=== PATIENT | male | born 1955 | race American Indian/Alaskan Native ===

== ENCOUNTER 2021-01-08 09:19 | Emergency (ER) | payer MEDICARE ==
[2021-01-08] MEDS ORDERED: HYDROcodone/ACETAMINOPHEN 5-325 MG TAB PO ONE (10:29)
[2021-01-08] MEDS ORDERED: IBUPROFEN 800 MG TAB PO ONE (10:29)
[2021-01-08] MEDS ORDERED: SULFAMETHOXAZOLE/TRIMETHOPRIM 800/160MG DS TAB PO ONE (10:29)
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
--- NOTE | 2021-01-08 11:25 | XRay Report ---
RIGHT SHOULDER 3 VIEWS INDICATION: right shoulder pain injury while crawling. COMPARISON: None. IMPRESSION: No acute osseous or soft tissue abnormality. Moderate osteoarthritic changes are iden tified at the AC joint and to a lesser extent the glenohumeral joint. Signer Name: uSrjit Saini Jr, MD Signed: 01/08/2021 11:21 AM Workstation Name: [id number]
[2021-01-08 15:30] VITALS: BP 105/62
== END 2021-01-08 15:36 | disposition home or self-care (01) ==
LOC: ED 09:19
DX: S46.911A Strain of unspecified muscle, fascia and tendon at shoulder and upper arm level, right arm, initial encounter (principal); N39.0 Urinary tract infection, site not specified; M19.011 Primary osteoarthritis, right shoulder; X58.XXXA Exposure to other specified factors, initial encounter; F10.20 Alcohol dependence, uncomplicated; Y93.89 Activity, other specified; Y92.89 Other specified places as the place of occurrence of the external cause; Y99.8 Other external cause status
CPT/HCPCS: 99283

== ENCOUNTER 2021-09-08 13:04 | Emergency (ER) | payer MEDICARE ==
--- NOTE | 2021-09-08 19:05 | Emergency Department Report ---
- General Chief complaint: Skin/Abscess/Foreign Body Stated complaint: CYST ON SCALP Source: patient, EMS Mode of arrival: Stretcher Limitations: Physical Limitation - History of Present Illness Initial comments: 66-year-old male presents to the ED with rash noted to the occipital of the head. Patient states that he using a razor he had a small pimple that continue to grow x2 weeks. Patient states that he has been using [id number] medication without any relief. Patient denies any fever, chills, nausea or vomiting. Patient alert and oriented x3. No acute distress noted. No ill appearance noted. MD complaint: rash Onset/Timin -: week(s) Location: head Severity: mild Quality: aching Consistency: intermittent Improves with: none Worsens with: none - Related Data Home Medications Medication Instructions Recorded Confirmed Last Taken Amitriptyline [Elavil] 100 mg PO DAILY 05/10/20 05/10/20 05/09/20 22:00 100 Previous Rx's Medication Instructions Recorded Last Taken Type Acetaminophen [Acetaminophen TAB] 650 mg PO Q6H PRN tablet 05/13/20 Unknown Rx Amiodarone [Cordarone 200 MG TAB] 200 mg PO BID #60 tablet 05/13/20 Unknown Rx Aspirin [Aspirin BABY CHEW TAB] 81 mg PO QDAY #30 tab.chew 05/13/20 Unknown Rx Docusate Sodium [Colace CAP] 100 mg PO BID capsule 05/13/20 Unknown Rx Furosemide [Lasix TAB] 40 mg PO DAILY #30 tablet 05/13/20 Unknown Rx Metoprolol [Lopressor TAB] 25 mg PO Q6HR #120 tablet 05/13/20 Unknown Rx Pantoprazole [Protonix TAB] 40 mg PO QDAC #30 tablet 05/13/20 Unknown Rx Sennosides Tab [Senokot] 8.6 mg PO BID tablet 05/13/20 Unknown Rx Spironolactone [Aldactone] 25 mg PO QDAY #30 tablet 05/13/20 Unknown Rx bisacodyL [Dulcolax suppos] 10 mg MT QDAY PRN supp.rect 05/13/20 Unknown Rx lisinopriL [Zestril TAB] 2.5 mg PO QDAY #30 tablet 05/13/20 Unknown Rx oxyCODONE /ACETAMINOPHEN [Percocet 1 tab PO Q6H PRN tablet 05/13/20 Unknown Rx 5/325 mg] polyethylene glycoL 3350 [Miralax 17 gm PO QDAY powd.pack 05/13/20 Unknown Rx 3350] Ibuprofen [Motrin 400 MG tab] 400 mg PO Q8H PRN #15 tablet 01/08/21 Unknown Rx Sulfamethoxazole/Trimethoprim 1 each PO BID 10 Days #20 tablet 01/08/21 Unknown Rx [Bactrim DS TAB] Sulfamethoxazole/Trimethoprim 1 each PO BID 10 Days #20 tab 09/08/21 Unknown Rx [Bactrim DS TAB] Allergies Allergy/AdvReac Type Severity Reaction Status Date / Time No Known Allergies Allergy Verified 09/08/21 13:15 Abscess Boil HPI - HPI Chief Complaint: Skin/Abscess/Foreign Body Stated Complaint: CYST ON SCALP Home Medications: Home Medications Medication Instructions Recorded Confirmed Last Taken Amitriptyline [Elavil] 100 mg PO DAILY 05/10/20 05/10/20 05/09/20 22:00 100 Previous Rx's Medication Instructions Recorded Last Taken Type Acetaminophen [Acetaminophen TAB] 650 mg PO Q6H PRN tablet 05/13/20 Unknown Rx Amiodarone [Cordarone 200 MG TAB] 200 mg PO BID #60 tablet 05/13/20 Unknown Rx Aspirin [Aspirin BABY CHEW TAB] 81 mg PO QDAY #30 tab.chew 05/13/20 Unknown Rx Docusate Sodium [Colace CAP] 100 mg PO BID capsule 05/13/20 Unknown Rx Furosemide [Lasix TAB] 40 mg PO DAILY #30 tablet 05/13/20 Unknown Rx Metoprolol [Lopressor TAB] 25 mg PO Q6HR #120 tablet 05/13/20 Unknown Rx Pantoprazole [Protonix TAB] 40 mg PO QDAC #30 tablet 05/13/20 Unknown Rx Sennosides Tab [Senokot] 8.6 mg PO BID tablet 05/13/20 Unknown Rx Spironolactone [Aldactone] 25 mg PO QDAY #30 tablet 05/13/20 Unknown Rx bisacodyL [Dulcolax suppos] 10 mg MT QDAY PRN supp.rect 05/13/20 Unknown Rx lisinopriL [Zestril TAB] 2.5 mg PO QDAY #30 tablet 05/13/20 Unknown Rx oxyCODONE /ACETAMINOPHEN [Percocet 1 tab PO Q6H PRN tablet 05/13/20 Unknown Rx 5/325 mg] polyethylene glycoL 3350 [Miralax 17 gm PO QDAY powd.pack 05/13/20 Unknown Rx 3350] Ibuprofen [Motrin 400 MG tab] 400 mg PO Q8H PRN #15 tablet 01/08/21 Unknown Rx Sulfamethoxazole/Trimethoprim 1 each PO BID 10 Days #20 tablet 01/08/21 Unknown Rx [Bactrim DS TAB] Sulfamethoxazole/Trimethoprim 1 each PO BID 10 Days #20 tab 09/08/21 Unknown Rx [Bactrim DS TAB] Allergies/Adverse Reactions: Allergies Allergy/AdvReac Type Severity Reaction Status Date / Time No Known Allergies Allergy Verified 09/08/21 13:15 ED Review of Systems ROS: Stated complaint: CYST ON SCALP Other details as noted in HPI Constitutional: denies: chills, fever Eyes: denies: eye pain, eye discharge, vision change ENT: denies: ear pain, throat pain Respiratory: denies: cough, shortness of breath, wheezing Cardiovascular: denies: chest pain, palpitations Endocrine: no symptoms reported Gastrointestinal: denies: abdominal pain, nausea, diarrhea Genitourinary: denies: urgency, dysuria Musculoskeletal: denies: back pain, joint swelling, arthralgia Skin: lesions Neurological: denies: headache, weakness, paresthesias Psychiatric: denies: anxiety, depression Hematological/Lymphatic: denies: easy bleeding, easy bruising ED Past Medical Hx - Past Medical History Hx Hypertension: No Hx Congestive Heart Failure: No Hx Diabetes: No Hx Deep Vein Thrombosis: (Unknown) Hx Arthritis: Yes Hx Asthma: No Hx COPD: No Additional medical history: parapalegic from [facility] - Surgical History Hx Pacemaker: No Hx Internal Defibrillator: No Hx Cholecystectomy: Yes Additional Surgical History: muscle flap x3. bilateral hip surgery - Social History Smoking Status: Former Smoker Substance Use Type: Alcohol - Medications Home Medications: Home Medications Medication Instructions Recorded Confirmed Last Taken Type Amitriptyline [Elavil] 100 mg PO DAILY 05/10/20 05/10/20 05/09/20 22:00 History 100 Acetaminophen [Acetaminophen TAB] 650 mg PO Q6H PRN tablet 05/13/20 Unknown Rx Amiodarone [Cordarone 200 MG TAB] 200 mg PO BID #60 tablet 05/13/20 Unknown Rx Aspirin [Aspirin BABY CHEW TAB] 81 mg PO QDAY #30 tab.chew 05/13/20 Unknown Rx Docusate Sodium [Colace CAP] 100 mg PO BID capsule 05/13/20 Unknown Rx Furosemide [Lasix TAB] 40 mg PO DAILY #30 tablet 05/13/20 Unknown Rx Metoprolol [Lopressor TAB] 25 mg PO Q6HR #120 tablet 05/13/20 Unknown Rx Pantoprazole [Protonix TAB] 40 mg PO QDAC #30 tablet 05/13/20 Unknown Rx Sennosides Tab [Senokot] 8.6 mg PO BID tablet 05/13/20 Unknown Rx Spironolactone [Aldactone] 25 mg PO QDAY #30 tablet 05/13/20 Unknown Rx bisacodyL [Dulcolax suppos] 10 mg MT QDAY PRN supp.rect 05/13/20 Unknown Rx lisinopriL [Zestril TAB] 2.5 mg PO QDAY #30 tablet 05/13/20 Unknown Rx oxyCODONE /ACETAMINOPHEN [Percocet 1 tab PO Q6H PRN tablet 05/13/20 Unknown Rx 5/325 mg] polyethylene glycoL 3350 [Miralax 17 gm PO QDAY powd.pack 05/13/20 Unknown Rx 3350] Ibuprofen [Motrin 400 MG tab] 400 mg PO Q8H PRN #15 tablet 01/08/21 Unknown Rx Sulfamethoxazole/Trimethoprim 1 each PO BID 10 Days #20 tablet 01/08/21 Unknown Rx [Bactrim DS TAB] Sulfamethoxazole/Trimethoprim 1 each PO BID 10 Days #20 tab 09/08/21 Unknown Rx [Bactrim DS TAB] ED Physical Exam - General Limitations: Physical Limitation General appearance: alert, in no apparent distress - Head Head exam: Present: atraumatic, normocephalic - Eye Eye exam: Present: normal appearance - ENT ENT exam: Present: mucous membranes moist - Neck Neck exam: Present: normal inspection - Respiratory Respiratory exam: Present: normal lung sounds bilaterally. Absent: respiratory distress - Cardiovascular Cardiovascular Exam: Present: regular rate, normal rhythm. Absent: systolic murmur, diastolic murmur, rubs, gallop - GI/Abdominal GI/Abdominal exam: Present: soft, normal bowel sounds - Rectal Rectal exam: Present: deferred - Extremities Exam Extremities exam: Present: normal inspection - Back Exam Back exam: Present: normal inspection - Neurological Exam Neurological exam: Present: alert, oriented X3 - Psychiatric Psychiatric exam: Present: normal affect, normal mood - Skin Skin exam: Present: warm, dry, intact, normal color, rash ED Course Vital Signs 09/08/21 09/08/21 13:10 19:25 Temperature 98.7 F Pulse Rate 94 H 92 H Respiratory 16 12 Rate Blood Pressure 120/80 126/83 [Left] O2 Sat by Pulse 99 100 Oximetry ED Medical Decision Making - Medical Decision Making 66-year-old male presents to the ED with rash noted to the occipital of the head. Patient states that he using a razor he had a small pimple that continue to grow x2 weeks. Patient states that he has been using [id number] medication without any relief. Patient denies any fever, chills, nausea or vomiting. Patient alert and oriented x3. No acute distress noted. No ill appearance noted. Physical examination patient has hard tender nodule noted to the top of the head no fluctuance noted. Rechecked the patient is resting quietly quietly and comfortable and feeling better. I discussed the results of diagnostic study, my clinical impression and the plan for further treatment with the patient. Patient agrees with plan and discharge at this present time. All question addressed. I have given the patient instruction regarding a diagnosis ,expectation ,follow- up and return precaution. I explained to the patient that emergent condition may arise and to return to the ED for new worsen and any new persisting condition. I have explained the importance of following up with the primary care physician or referral physician listed below has instructed. The patient verbalized understanding of discharge instruction. Critical care attestation.: If time is entered above; I have spent that time in minutes in the direct care of this critically ill patient, excluding procedure time. ED Disposition Clinical Impression: Abscess Disposition: HOME / SELF CARE / HOMELESS Is pt being admited?: No Does the pt Need Aspirin: No Condition: Stable Instructions: Skin Abscess, [id number] Additional Instructions: Take medication as prescribed Return to the ED for any worsening symptoms Prescriptions: Sulfamethoxazole/Trimethoprim [Bactrim DS TAB] 1 each PO BID 10 Days #20 tab Referrals: PRIMARY CARE, [Primary Care Provider] - 3-5 Days [facility] [Provider Group] - 3-5 Days Forms: Work/School Release Form(ED)
[2021-09-08 19:25] VITALS: BP 126/83
== END 2021-09-08 19:26 | disposition home or self-care (01) ==
LOC: ED 13:04
DX: L02.811 Cutaneous abscess of head [any part, except face] (principal); M19.90 Unspecified osteoarthritis, unspecified site; Z98.890 Other specified postprocedural states; Z87.891 Personal history of nicotine dependence
CPT/HCPCS: 99283